=== PATIENT | female | born 1960 | race Caucasian/White ===

== ENCOUNTER 2017-04-27 21:25 | Emergency (ER) | payer OTHER ==
[~2017-04-27] VITALS: Ht 172.7 cm; Wt 69.1 kg
[~2017-04-27 21:25] MED LIST: CYCL-36 PO; HYDR-2768 PO; KETO10 PO; LORTA5 PO; MORP1INJ45 PO; NORV2.5T11 PO; ZOFR4TAB3 PO
[2017-04-27 21:28] VITALS: BP 186/90; PULSE 120; RESP 20; TEMP 98.9; O2SAT 98
[2017-04-27] MEDS ORDERED: KETOROLAC TROMETHAMINE 60 MG/2 ML (IM) VIAL IM ONE (21:45)
[2017-04-27 22:21] LABS: AUTOMATED NEUTROPHIL # 7.6 TH/MM3 (1.8-7.7); BASOPHIL # 0.1 TH/MM3 (0-0.2); BASOPHIL % 0.9 % (0.0-2.0); EOSINOPHIL # 0.1 TH/MM3 (0-0.4); HEMATOCRIT 45.4 % (35.0-46.0); HEMOGLOBIN 15.7 GM/DL (11.6-15.3); LYMPH % 19.2 % (9.0-44.0); LYMPHOCYTE # 2.1 TH/MM3 (1.0-4.8); MEAN CELL VOLUME 83.6 FL (80.0-100.0); MEAN CORPUSCULAR HEMOGLOBIN 28.9 PG (27.0-34.0); MEAN CORPUSCULAR HGB CONC 34.6 % (32.0-36.0); MEAN PLATELET VOLUME 8.4 FL (7.0-11.0); MONO % 8.9 % (0.0-8.0); PLATELET COUNT 333 TH/MM3 (150-450); RED BLOOD COUNT 5.43 MIL/MM3 (4.00-5.30); RED CELL DISTRIBUTION WIDTH 13.8 % (11.6-17.2); WHITE BLOOD COUNT 10.9 TH/MM3 (4.0-11.0)
[2017-04-27 22:47] LABS: ALBUMIN 3.8 GM/DL (3.4-5.0); AST (GOT) 18 U/L (15-37); BICARBONATE 30.3 MEQ/L (21.0-32.0); BLOOD UREA NITROGEN 21 MG/DL (7-18); CALCIUM 8.9 MG/DL (8.5-10.1); CHLORIDE 96 MEQ/L (98-107); CREATININE 1.21 MG/DL (0.50-1.00); GLOMERULAR FILTRATION RATE 46 ML/MIN (>89); GLUCOSE,RANDOM 169 MG/DL (74-106); SODIUM (NA) 135 MEQ/L (136-145)
[2017-04-27 22:50] LABS: ALKALINE PHOSPHATASE 89 U/L (45-117); ALT (GPT) 18 U/L (10-53); TOTAL BILIRUBIN ADULT 0.7 MG/DL (0.2-1.0); TOTAL PROTEIN 7.9 GM/DL (6.4-8.2)
--- NOTE | 2017-04-27 23:27 | RADRPT ---
EXAM DATE/TIME: 04/27/2017 22:44 [place] COMPARISON: No previous studies available for comparison. INDICATIONS : Right flank pain. ORAL CONTRAST: No oral contrast ingested. RADIATION DOSE: 6.6 CTDIvol (mGy) MEDICAL HISTORY : Hypertension. SURGICAL HISTORY : Hysterectomy. ENCOUNTER: Initial ACUITY: 1 day PAIN SCALE: 5/10 LOCATION: Right flank TECHNIQUE: Volumetric scanning of the abdomen and pelvis was performed. Using automated exposure control and ad justment of the mA and/or kV according to patient size, radiation dose was kept as low as reasonably achievable to obtain optimal diagnostic quality images. DICOM format image data is available electro nically for review and comparison. FINDINGS: LOWER LUNGS: The visualized lower lungs are clear. LIVER: Homogeneous density without lesion. There is no dilation of the biliary tree. No calcified gallston es. SPLEEN: Normal size without lesion. PANCREAS: Within normal limits. KIDNEYS: 3 mm calcified calculus in the proximal right ureter with resultant mild right-sided hydronephrosis. There are three additional punctate 2 mm calyceal calculi in the mid and inferior poles of the right kidney. ADRENAL GLANDS: Within normal limits. VASCULAR: There is no aortic aneurysm. BOWEL/MESENTERY: The stomach, small bowel, and colon demonstrate no acute abnormality. There is no free intraperitone al air or fluid. ABDOMINAL WALL: Within normal limits. RETROPERITONEUM: There is no lymphadenopathy. BLADDER: No wall thickening or mass. REPRODUCTIVE: Surgically absent. INGUINAL: There is no lymphadenopathy or hernia. MUSCULOSKELETAL: Within normal limits for patient age. CONCLUSION: 1. 3 mm calcified ureteral calculus in the proximal right ureter with mild right-sided hydronephrosis . 2. Three additional punctate 2 mm right renal calyceal calculi. James Dejesus MD on April 27, 2017 at 23:22 Board Certified Radiologist. This report was verified electronically.
[2017-04-28] MEDS ORDERED: SODIUM CHLOR 0.9% 1000 ML INJ 1,000 ML IV ONE (01:15)
[2017-04-28] MEDS ORDERED: TAMSULOSIN HCL 0.4 MG CAP PO ONE (01:15)
[2017-04-28] MEDS ORDERED: HYDROmorphone HCL PF 2 MG/ML VIAL IV PUSH ONE (01:15)
[2017-04-28] MEDS ORDERED: HYDR25TA5 PO (01:23)
[2017-04-28] MEDS ORDERED: LIPI10TA PO (01:23)
[2017-04-28] MEDS ORDERED: [UNRECOGNIZED DRUG - CODE] (01:23)
[2017-04-28] MEDS ORDERED: CYCL10TA PO (01:23)
[2017-04-28 01:35] LABS: BLOOD, URINE LARGE (NEG); GLUCOSE,URINE NEG (NEG); KETONE, URINE TRACE mg/dL (NEG); NITRITE,URINE NEG (NEG); URINE COLOR YELLOW (YELLW/STRAW); URINE LEUKOCYTE ESTERASE NEG (NEG)
[2017-04-28 01:47] LABS: MUCUS URINE FEW /lpf (OCC); SQUAMOUS EPITHELIAL CELL URINE 4 /hpf (0-5)
[2017-04-28 01:57] LABS: BILIRUBIN, URINE NEG (NEG)
[2017-04-28] MEDS ORDERED: TRAM50 PO (03:10)
[2017-04-28] MEDS ORDERED: TAMS5CAP PO (03:10)
--- NOTE | 2017-04-28 03:10 | PD ---
HPI . Flank/kidney pain Chief Complaint: Flank/Kidney Pain Time Seen by Provider: 01:06 Travel History International Travel<30 days: No Contact w/Intl Traveler<30days: No Traveled to known affect area: No History of Present Illness HPI 56-year-old female with a history of kidney stones, since the age of 17, patient states she has right flank pain consistent with prior renal colic. Patient has due date past 51 stones. Denies any fevers chills sweats. Patient does note feeling dehydrated however. Patient has a history of having mild renal insufficiency periodically in the past. PFS Past Medical History Narrative Medical Past medical history reviewed High Cholesterol: Yes Diminished Hearing: No Hypertension: Yes Kidney Stones: Yes Neurologic: Yes (RSD) ?: Not Past Surgical History Ear Surgery: Yes (melanoma removed from left ear) Hysterectomy: Yes (2005) Social History Alcohol Use: Yes () Tobacco Use: No Substance Use: No Allergies-Medications (Allergen,Severity, Reaction): Coded Allergies: penicillin G (Unverified Allergy, Severe, 10/20/16) codeine (Unverified Adverse Reaction, Mild, nausea/vomiting, 10/20/16) Reported Meds & Prescriptions Reported Meds & Active Scripts Active Reported Flexeril (Cyclobenzaprine HCl) 10 Mg Tab 10 Mg PO TID Morphine 50 mg/25 ml-0.9% NaCl (Morphine Sulfate in 0.9 % NaCl) 50 Mg/25 Ml (2 Mg/Ml) [employer]ring Lipitor (Atorvastatin Calcium) 10 Mg Tab 10 Mg PO HS Hydrochlorothiazide 25 Mg Tab 25 Mg PO DAILY Narrative Medication Allergies and medications reviewed Review of Systems Except as stated in HPI: all other systems reviewed are Neg General / Constitutional: No: Fever Eyes: No: Visual changes HENT: No: Headaches Cardiovascular: No: Chest Pain or Discomfort Respiratory: No: Shortness of Breath Gastrointestinal: Positive: Nausea, No: Abdominal Pain Genitourinary: Positive: Hematuria, Flank Pain, No: Urgency, Frequency, Dysuria , Pelvic Pain Musculoskeletal: No: Myalgias, Arthralgias, Limited ROM, Pain Skin: No Rash Neurologic: No: Weakness Psychiatric: No: Depression Endocrine: No: Polydipsia Hematologic/Lymphatic: No: Easy Bruising Physical Exam Narrative GENERAL: Awake and alert and oriented 3 in no acute distress. Vital signs afebrile normal and stable SKIN: Warm and dry. Color is normal diaphoresis cyanosis or pallor HEAD: Atraumatic. Normocephalic. EYES: Pupils equal and round. No scleral icterus. No injection or drainage. ENT: No nasal bleeding or discharge. Mucous membranes pink and moist. Lips are slightly dry NECK: Trachea midline. No JVD. Supple full range of motion CARDIOVASCULAR: Regular rate and rhythm. S1-S2 no murmurs rubs gallops RESPIRATORY: No accessory muscle use. Clear to auscultation. Breath sounds equal bilaterally. GASTROINTESTINAL: Abdomen soft, non-tender, nondistended. Hepatic and splenic margins not palpable. No CVA tenderness MUSCULOSKELETAL: Extremities without clubbing, cyanosis, or edema. No obvious deformities. NEUROLOGICAL: Awake and alert. No obvious cranial nerve deficits. Motor grossly within normal limits. Five out of 5 muscle strength in the arms and legs. Normal speech. PSYCHIATRIC: Appropriate mood and affect; insight and judgment normal. Data Data Last Documented VS Vital Signs Date Time Temp Pulse Resp B/P (MAP) Pulse Ox O2 Delivery O2 Flow Rate FiO2 04/27/17 21:28 98.9 120 20 186/90 (122) 98 Orders Orders Complete Blood Count With Diff (04/27/17 21:31) Comprehensive Metabolic Panel (04/27/17 21:31) Urinalysis - C+S If Indicated (04/27/17 21:31) Ct Abd/Pel W/O Iv Contrast (04/27/17 21:31) Ketorolac Inj (Toradol Inj) (04/27/17 21:45) Sodium Chlor 0.9% 1000 Ml Inj (Ns 1000 M (04/28/17 01:15) Tamsulosin (Flomax) (04/28/17 01:15) Hydromorphone Pf Inj (Dilaudid Pf Inj) (04/28/17 01:15) Urine Culture (04/28/17 01:05) Labs Laboratory Tests Test 04/27/17 21:40 04/28/17 01:05 White Blood Count 10.9 TH/MM3 Red Blood Count 5.43 MIL/MM3 Hemoglobin 15.7 GM/DL Hematocrit 45.4 % Mean Corpuscular Volume 83.6 FL Mean Corpuscular Hemoglobin 28.9 PG Mean Corpuscular Hemoglobin Concent 34.6 % Red Cell Distribution Width 13.8 % Platelet Count 333 TH/MM3 Mean Platelet Volume 8.4 FL Neutrophils (%) (Auto) 70.0 % Lymphocytes (%) (Auto) 19.2 % Monocytes (%) (Auto) 8.9 % Eosinophils (%) (Auto) 1.0 % Basophils (%) (Auto) 0.9 % Neutrophils # (Auto) 7.6 TH/MM3 Lymphocytes # (Auto) 2.1 TH/MM3 Monocytes # (Auto) 1.0 TH/MM3 Eosinophils # (Auto) 0.1 TH/MM3 Basophils # (Auto) 0.1 TH/MM3 CBC Comment DIFF FINAL Differential Comment Blood Urea Nitrogen 21 MG/DL Creatinine 1.21 MG/DL Random Glucose 169 MG/DL Total Protein 7.9 GM/DL Albumin 3.8 GM/DL Calcium Level 8.9 MG/DL Alkaline Phosphatase 89 U/L Aspartate Amino Transf (AST/SGOT) 18 U/L Alanine Aminotransferase (ALT/SGPT) 18 U/L Total Bilirubin 0.7 MG/DL Sodium Level 135 MEQ/L Potassium Level 3.1 MEQ/L Chloride Level 96 MEQ/L Carbon Dioxide Level 30.3 MEQ/L Anion Gap 9 MEQ/L Estimat Glomerular Filtration Rate 46 ML/MIN Urine Color YELLOW Urine Turbidity SLIGHTY CLOUDY Urine pH 6.0 Urine Specific [place] 1.032 Urine Protein 100 mg/dL Urine Glucose (UA) NEG mg/dL Urine Ketones TRACE mg/dL Urine Occult Blood LARGE Urine Nitrite NEG Urine Bilirubin NEG Urine Urobilinogen 1.0 MG/DL Urine Leukocyte Esterase NEG Urine RBC 12 /hpf Urine WBC 14 /hpf Urine Squamous Epithelial Cells 4 /hpf Urine Mucus FEW /lpf Microscopic Urinalysis Comment CULTURE INDICATED MDM Medical Decision Making Medical Screen Exam Complete: Yes Emergency Medical Condition: Yes Medical Record Reviewed: Yes Differential Diagnosis Flank pain, renal colic, hydronephrosis, nephrolithiasis, ureterolithiasis Narrative Course CT abdomen pelvis performed and laboratory examinations performed via protocol through triage. Patient given Toradol 60 mg IM at triage via protocol. Creatinine 1.21, CT significant for 3 mm stone mid proximal ureter right, with mild hydro-ureter hydronephrosis. No extravasation about the kidney. Patient left her examinations otherwise reviewed and normal. Patient given IV normal saline 1 L with Flomax 0.4 mg p.o. Care plan developed patient. Drink plenty of fluids, Flomax 0.4 mg daily. Follow-up with urology. Return promptly for worsening. Recommend repeat laboratory examinations within the next 5-7 days to check renal function Diagnosis Primary Impression: Renal colic Additional Impressions: Ureterolithiasis Renal insufficiency Patient Instructions: General Instructions, Kidney Stones (ED), Renal Colic (ED ) Additional Instructions: Drink plenty of fluids. Ultram 50 mg orally every 8 hours as needed for pain. Follow-up with urologist. Follow-up with your medical physician. Recommend repeat laboratory examinations to evaluate electrolytes and renal function within the next week. Return promptly for worsening. Scripts Tamsulosin (Flomax) 0.4 Mg Cap 0.4 MG PO HS for Manage Prostate Problems, #15 CAP 0 Refills Prov: Beto Leiva MD 04/28/17 Tramadol (Ultram) 50 Mg Tab 50 MG PO Q8H Y for PAIN, #20 TAB 0 Refills Prov: Beto Leiva MD 04/28/17 Disposition: 01 DISCHARGE HOME Condition: Stable Beto Leiav MD Apr 28, 2017 03:10
[2017-04-28 04:33] VITALS: BP 135/79
== END 2017-04-28 04:33 | disposition home or self-care (01) ==
LOC: NEPE 21:25
DX: N13.2 Hydronephrosis with renal and ureteral calculous obstruction (principal); E78.00 Pure hypercholesterolemia, unspecified; I10 Essential (primary) hypertension
CPT/HCPCS: 74176; 80053; 81001; 85025; 87086; 96372; 96374; 99284; J1170; J1885; J7030